=== PATIENT | female | born 1985 ===

== ENCOUNTER 2017-03-16 23:59 | Emergency (ER) | payer SELFPAY ==
[2017-03-17 00:27] VITALS: RESP 20; TEMP 98
[2017-03-17] MEDS ORDERED: Sodium Chloride 0.9% 1,000 ML IV STA (00:28)
--- NOTE | 2017-03-17 00:40 | ED PDOC ---
Arrival/HPI <Brett Marion - Last Filed: 03/17/17 01:10> - General Historian: Patient - History of Present Illness Symptom Onset: Sudden <Chrissy García - Last Filed: 03/17/17 04:15> - General Chief Complaint: Ingestion, Accidental Time Seen by Provider: 03/17/17 00:25 - History of Present Illness Narrative History of Present Illness (Text): 03/17/17 00:29 Patient is a 31 y/o with no PMH presenting s/p accidental ingestion of the Mr clean cleaning liquid at around 2100 pm. Patient states she thought the liquid was water. She drink a whole cup full of the product. Patient is currently c/o throat irritation, nausea, vomiting and retching. Patient denies cp, sob. Admits to abdominal discomfort. No PMD. 03/17/17 00:52 03/17/17 00:53 (Chrissy García) Past Medical History - Provider Review Nursing Documentation Reviewed: Yes <Brett Marion - Last Filed: 03/17/17 01:10> - Provider Review Nursing Documentation Reviewed: Yes - Travel History Have you recently traveled outside [place] w/in the past 3 mons?: No - Past History Past History: No Previous - Infectious Disease Hx of Infectious Diseases: None - Psychiatric Hx Substance Use: No - Surgical History Hx Section: Yes (x2) - Anesthesia Hx Anesthesia: Yes Hx Anesthesia Reactions: No Hx Malignant Hyperthermia: No <Chrissy García - Last Filed: 03/17/17 04:15> Family/Social History - Physician Review Nursing Documentation Reviewed: Yes Family/Social History: No Known Family HX <DoniBrett - Last Filed: 03/17/17 01:10> - Physician Review Nursing Documentation Reviewed: Yes Smoking Status: Never Smoked Hx Alcohol Use: No Hx Substance Use: No <Chrissy García - Last Filed: 03/17/17 04:15> Allergies/Home Meds <LuizalashonBrett - Last Filed: 03/17/17 01:10> <Chrissy García - Last Filed: 03/17/17 04:15> Allergies/Adverse Reactions: Allergies No Known Allergies Allergy (Verified 03/17/17 00:27) Home Medications: Home Meds Medication Instructions Recorded Confirmed No Known Home Med 03/17/17 03/17/17 Review of Systems - Review of Systems Constitutional: Normal Eyes: Normal ENT: Sore Throat Respiratory: Normal Cardiovascular: Normal Gastrointestinal: Abdominal Pain Genitourinary Female: Normal Musculoskeletal: Normal Skin: Normal Neurological: Normal Endocrine: Normal Hemo/Lymphatic: Normal Psychiatric: Normal <Chrissy García - Last Filed: 03/17/17 04:15> Physical Exam Temperature: Afebrile Blood Pressure: Normal Pulse: Regular Respiratory Rate: Normal Appearance: Positive for: Well-Appearing, Non-Toxic, Uncomfortable. No: Comfortable Pain Distress: Mild Mental Status: Positive for: Alert and Oriented X 3 - Systems Exam Head: Present: Atraumatic, Normocephalic. No: Tenderness Pupils: Present: PERRL Extroacular Muscles: Present: EOMI Conjunctiva: Present: Normal Mouth: Present: Moist Mucous Membranes Pharnyx: Present: ERYTHEMA (mild) Neck: Present: Normal Range of Motion Respiratory/Chest: Present: Clear to Auscultation, Good Air Exchange. No: Respiratory Distress, Accessory Muscle Use Cardiovascular: Present: Regular Rate and Rhythm, Normal S1, S2. No: Murmurs Abdomen: Present: Tenderness, Distention, Normal Bowel Sounds. No: Peritoneal Signs Upper Extremity: Present: Normal Inspection. No: Edema Lower Extremity: Present: Normal Inspection. No: Edema Neurological: Present: GCS=15 Skin: Present: Warm, Dry, Normal Color Psychiatric: Present: Alert, Oriented x 3, Anxious <Chrissy García - Last Filed: 03/17/17 04:15> Vital Signs Temp Pulse Resp BP Pulse Ox 03/17/17 02:29 98 F 75 20 126/82 98 03/17/17 01:13 98 F 74 20 113/62 100 03/17/17 00:21 98 F 82 20 170/83 H 99 Medical Decision Making - Lab Interpretations I have reviewed the lab results: Yes <Brett Marion - Last Filed: 03/17/17 01:10> Re-evaluation Time: 01:45 Reassessment Condition: Improved - Lab Interpretations I have reviewed the lab results: Yes (All normal except Potassium of 3.3) <Chrissy García - Last Filed: 03/17/17 04:15> ED Course and Treatment: Pt seen and evaluated with director medical affairs. Pt, with no past medical history, presented status post accidentally ingestion of all-purpose cleaning liquid at 21:00. Patient states she thought cleaning liquid was water and notes she drank an entire cup. Patient reports throat irritation, abdominal discomfort, nausea, and vomiting currently. Aware and agree with HPI, clinical findings, plan, and management. Plan: -- Labs, lipase -- Urinalysis -- IV fluids -- Zofran -- Reassess and disposition (Brett Marion) 03/17/17 00:36 Spoke to poison controlled ( [place]), about the patient, states since patient ingested the liquid more than 3.2 hrs ago, there's nothing to do, the product is not caustic. Patient can be discharged and managed at home. 03/17/17 01:40 Patient reports improvement after drinking bessie abbi. Hypokalemia- will give 40 meq of kdur. (Chrissy García) - Lab Interpretations Lab Results: 03/17/17 00:30 03/17/17 00:30 Lab Results 03/17/17 02:00: Urine Color Light yellow, Urine Appearance Clear, Urine pH 7.0, Ur Specific [place] 1.015, Urine Protein Negative, Urine Glucose (UA) Negative, Urine Ketones Negative, Urine Blood Negative, Urine Nitrate Negative, Urine Bilirubin Negative, Urine Urobilinogen 0.2, Ur Leukocyte Esterase Trace H, Urine RBC 0 - 2, Urine WBC 0 - 2, Ur Epithelial Cells 0 - 2, Urine Bacteria Rare 03/17/17 00:30: Sodium 140, Potassium 3.3 L, Chloride 105, Carbon Dioxide 22, Anion Gap 16, BUN 15, Creatinine 0.9, Est GFR ( Amer) > 60, Est GFR (Non- Af Amer) > 60, Random Glucose 108, Calcium 9.3, Total Bilirubin 0.4, AST 20, ALT 32, Alkaline Phosphatase 69, Total Protein 7.6, Albumin 4.3, Globulin 3.3, Albumin/Globulin Ratio 1.3, Lipase 140 03/17/17 00:30: WBC 9.0, RBC 4.27, Hgb 13.2, Hct 37.5, MCV 87.8, MCH 30.9, MCHC 35.2, RDW 13.4, Plt Count 229, MPV 10.5, Gran % 54.4, Lymph % (Auto) 38.1 H, [place] % (Auto) 6.9 H, Eos % (Auto) 0.4 L, Baso % (Auto) 0.2, Gran # 4.90, Lymph # 3.4, [place] # 0.6, Eos # 0.0, Baso # 0.02 - Medication Orders Current Medication Orders: Discontinued Medications Sodium Chloride (Sodium Chloride 0.9%) 1,000 mls @ 999 mls/hr IV .Q1H1M STA Stop: 03/17/17 01:28 Last Admin: 03/17/17 00:44 Dose: 999 mls/hr Ondansetron HCl (Zofran Inj) 4 mg IVP STAT STA Stop: 03/17/17 00:29 Last Admin: 03/17/17 00:44 Dose: 4 mg Pantoprazole Sodium (Protonix Inj) 40 mg IVP ONCE STA Stop: 03/17/17 01:20 Last Admin: 03/17/17 02:05 Dose: 40 mg Potassium Chloride (K-Dur 20 Meq Er Tab) 40 meq PO STAT STA Stop: 03/17/17 01:47 Last Admin: 03/17/17 02:12 Dose: 40 meq Disposition/Present on Arrival <Brett Marion - Last Filed: 03/17/17 01:10> - Present on Arrival Any Indicators Present on Arrival: No History of DVT/PE: No History of Uncontrolled Diabetes: No Urinary Catheter: No History of Decub. Ulcer: No History Surgical Site Infection Following: None - Disposition Have Diagnosis and Disposition been Completed?: Yes Disposition Time: 01:50 <Chrissy García - Last Filed: 03/17/17 04:15> - Disposition Diagnosis: Ingestion of detergent or soap, Vomiting, Hypokalemia, gastrointestinal losses Disposition: HOME/ ROUTINE Condition: IMPROVED Additional Instructions: Please keep chemicals in the proper containers and labelled. Follow up with PMD or [facility] Go to the nearest emergency room if you experience chest, shortness of breath, fever or feels like your throat is closing. Referrals: PCP,NO [Primary Care Provider] - Follow up with primary [facility] [Outside] - Follow up with primary
[2017-03-17 00:57] LABS: ADD MANUAL DIFF? NO
[2017-03-17 01:15] LABS: BASO # 0.02 K/mm3 (0.0-2.0); BASO % 0.2 % (0.0-3.0); EOS % 0.4 % (1.5-5.0); GRAN % 54.4 % (50.0-68.0); HEMATOCRIT 37.5 % (36.0-48.0); LYMPH # 3.4 (1.2-3.4); LYMPH % 38.1 % (22.0-35.0); MEAN CELL VOLUME 87.8 fL (80.0-105.0); MEAN CORPUSCULAR HEMOGLOBIN 30.9 pg (25.0-35.0); MEAN CORPUSCULAR HGB CONC 35.2 g/dl (31.0-37.0); MEAN PLATELET VOLUME 10.5 fl (7.0-11.0); MONO # 0.6 (0.1-0.6); MONO % 6.9 % (1.0-6.0); PLATELET COUNT 229 10^3/uL (120.0-450.0); RED CELL DISTRIBUTION WIDTH 13.4 % (11.5-14.5)
[2017-03-17 01:21] LABS: ALB/GLOB RATIO 1.3 (1.1-1.8); ALKALINE PHOSPHATASE 69 U/L (38-133); ALT/SGPT 32 U/L (7-56); AST/SGOT 20 U/L (15-39); BILIRUBIN,TOTAL 0.4 mg/dL (0.2-1.3); BLOOD UREA NITROGEN 15 mg/dL (7-21); CALCIUM 9.3 mg/dL (8.4-10.5); CARBON DIOXIDE 22 mmol/L (21-33); GFR AFRICAN-AMERICAN > 60; GLUCOSE,RANDOM 108 mg/dL (70-110); LIPASE 140 U/L (23-300); POTASSIUM 3.3 mmol/L (3.6-5.0); SODIUM 140 mmol/L (132-148); TOTAL PROTEIN 7.6 g/dL (5.8-8.3)
[2017-03-17 01:24] LABS: CHLORIDE 105 mmol/L (95-110)
[2017-03-17] MEDS ORDERED: Potassium Chloride 20 mEq ER Tab PO STA (01:46)
[2017-03-17 02:21] LABS: URINE BILIRUBIN NEGATIVE (NEGATIVE); URINE BLOOD NEGATIVE (NEGATIVE); URINE GLUCOSE (UA) NEGATIVE (NEGATIVE); URINE KETONE NEGATIVE (NEGATIVE); URINE LEUKOCYTE ESTERASE TRACE Leu/uL (NEGATIVE); URINE PROTEIN NEGATIVE mg/dL (<30 mg/dL); URINE UROBILINOGEN 0.2 E.U./dL (<1 E.U./dL)
[2017-03-17 02:25] LABS: URINE APPEARANCE CLEAR (CLEAR); URINE COLOR LIGHT YELLOW (YELLOW)
[2017-03-17 02:29] VITALS: BP 126/82; PULSE 75; O2SAT 98
[2017-03-17 02:54] LABS: URINE EPITHELIAL CELLS 0 - 2 /hpf (0-5); URINE RBC 0 - 2 /hpf (0-2); URINE WBC 0 - 2 /hpf (0-6)
[2017-03-17 02:55] LABS: URINE BACTERIA RARE (NEG)
== END 2017-03-17 02:50 | disposition home or self-care (01) ==
LOC: ED 23:59
DX: T49.2X1A Poisoning by local astringents and local detergents, accidental (unintentional), initial encounter (principal); T55.0X1A Toxic effect of soaps, accidental (unintentional), initial encounter; R11.10 Vomiting, unspecified; E87.6 Hypokalemia
CPT/HCPCS: 80053; 81001; 83690; 85025; 96361; 96374; 96375; 99283; C9113; J2405; J7040